=== PATIENT | female | born 1990 | race Two or more races ===

== ENCOUNTER 2017-12-03 21:07 | Emergency (ER) | payer OTHER ==
[~2017-12-03] VITALS: Ht 160 cm; Wt 53.5 kg
[2017-12-03 21:18] VITALS: BP 122/75
--- NOTE | 2017-12-03 21:34 | NUR ---
CASSIUS ACUÑA AT BEDSIDE TO ANGELITA AVERY.
[2017-12-03] MEDS ORDERED: FAMOTIDINE (20 MG) 20 MG TABLET ONE (21:40)
[2017-12-03] MEDS ORDERED: diphenhydrAMINE HCL 25 MG CAPSULE ONE (21:40)
[2017-12-03] MEDS ORDERED: predniSONE 10 MG TABLET ONE (21:41)
[2017-12-03] MEDS ORDERED: predniSONE 20 MG TABLET ONE (21:41)
[2017-12-03] MEDS ORDERED: FAMOTIDINE (20 MG) 20 MG TABLET PO ONE (22:00)
[2017-12-03] MEDS ORDERED: diphenhydrAMINE HCL 25 MG CAPSULE PO ONE (22:00)
[2017-12-03] MEDS ORDERED: predniSONE 20 MG TABLET PO ONE (22:00)
== END 2017-12-03 21:46 | disposition home or self-care (01) ==
LOC: ER 21:08
DX: L50.8 Other urticaria (principal)
CPT/HCPCS: A4606; Q0163; Z7610

== ENCOUNTER 2017-12-20 09:50 | Emergency (ER) | payer OTHER ==
[~2017-12-20] VITALS: Ht 160 cm; Wt 53.5 kg
[2017-12-20] MEDS ORDERED: predniSONE 20 MG TABLET ONE (10:25)
[2017-12-20] MEDS ORDERED: diphenhydrAMINE HCL 50 MG CAPSULE ONE (10:25)
[2017-12-20] MEDS ORDERED: diphenhydrAMINE HCL 50 MG CAPSULE PO ONE (10:30)
[2017-12-20] MEDS ORDERED: predniSONE 20 MG TABLET PO ONE (10:30)
[2017-12-20 10:36] VITALS: BP 110/60
== END 2017-12-20 10:39 | disposition home or self-care (01) ==
LOC: ER 09:59
DX: L50.0 Allergic urticaria (principal)
CPT/HCPCS: A4606; Q0163; Z7610